=== PATIENT | male | born 1960 | race Caucasian/White ===

== ENCOUNTER 2018-06-26 16:03 | Emergency (ER) | payer BC ==
[2018-06-26 16:52] LABS: BASO % 0.4 % (0-6); EOS % 8.2 % (0-6); GRAN % 33.4 % (47-80); HEMATOCRIT 39.1 % (42.0-52.0); HEMOGLOBIN 12.6 gm/dl (14.0-18.0); LYMPH % 45.4 % (16-45); MEAN CELL VOLUME 83.2 fl (81-97); MEAN CORPUSCULAR HEMOGLOBIN 26.8 pg (27-33); MEAN CORPUSCULAR HGB CONC 32.2 g/dl (32-36); MEAN PLATELET VOLUME 9.8 fl (7.4-10.4); MONO % 12.6 % (0-9); PLATELET COUNT 218 K/uL (130-400); RED CELL DISTRIBUTION WIDTH 14.8 % (11.5-14.5); WHITE BLOOD COUNT W/O DIFF 6.8 K/uL (4.2-12.2)
[2018-06-26 17:01] LABS: BLOOD UREA NITROGEN 21 mg/dL (6-20); CREATININE 1.3 mg/dL (0.7-1.2); EST GLOMERULAR FILTRATION RATE > 60 mL/min
[2018-06-26 17:02] LABS: TOTAL PROTEIN 6.7 g/dL (6.6-8.7)
[2018-06-26 17:04] LABS: GLUCOSE,RANDOM 88 mg/dL (74-109)
[2018-06-26 17:06] LABS: ALB/GLOB RATIO 1.4 (1.1-1.8); ALBUMIN 3.9 g/dL (4.0-5.0); ALT/SGPT 43 U/L (<41); AST/SGOT 41 U/L (10.0-50.0)
[2018-06-26 17:07] LABS: ALKALINE PHOSPHATASE 107 U/L (40-129)
--- NOTE | 2018-06-26 17:07 | Emergency Department Record ---
History of Present Illness - General Chief Complaint: Seizures Stated Complaint: SEZURE Time Seen by Provider: 06/26/18 16:10 Source: Patient, Police, EMS Mode of Arrival: EMS - History of Present Illness Initial Comments: pt brought in after a witnessed seizure when he hit his head. pt was postictal.. pt denies hx of seizures and denies he had a seizure. pt has been hiv pos for 33 years MD Complaint: Seizure Onset/Timin -: Hour(s) Description of Episode: Post-event confusion, Tonic-clonic movement Witnessed: Yes - by bystander Trauma: (bump on head and ankle) Place: Street/outdoors Associated Symptoms: Other (neck and back pain, chronic) Treatments Prior to Arrival: None - Related Data Home Medications Medication Instructions Recorded Confirmed Last Taken Alprazolam [Xanax] 0.25 mg PO QHS PRN 06/26/18 06/26/18 Unknown Bupropion HCl [Wellbutrin Xl] 450 mg PO DAILY 06/26/18 06/26/18 06/26/18 Cyclobenzaprine HCl [Flexeril] 10 mg PO DAILY PRN 06/26/18 06/26/18 Unknown Diphenoxylate HCl/Atropine 1 each PO DAILY 06/26/18 06/26/18 06/26/18 [Diphenoxylate-Atrop 2.5-0.025] Dolutegravir Sodium [Tivicay] 50 mg PO BID 06/26/18 06/26/18 06/26/18 Duloxetine HCl [Cymbalta] 60 mg PO BID 06/26/18 06/26/18 06/26/18 Emtricitabine/Tenofov Alafenam 1 each PO DAILY 06/26/18 06/26/18 06/26/18 [Descovy 200-25 mg Tablet] Enfuvirtide [Fuzeon] 90 mg SQ BID 06/26/18 06/26/18 06/26/18 Ergocalciferol (Vitamin D2) 50,000 unit PO WEEKLY 06/26/18 06/26/18 06/26/18 [Vitamin D2] Ferrous Sulfate 325 mg PO DAILY 06/26/18 06/26/18 06/26/18 Gabapentin [Neurontin] 300 mg PO TID 06/26/18 06/26/18 06/26/18 Meloxicam 15 mg PO DAILY 06/26/18 06/26/18 06/26/18 Mirtazapine 15 mg PO QHS 06/26/18 06/26/18 Unknown Pravastatin Sodium [Pravachol] 20 mg PO DAILY 06/26/18 06/26/18 06/26/18 Ritonavir [Norvir] 100 mg PO BID 06/26/18 06/26/18 06/26/18 Ropinirole HCl [Requip] 0.25 mg PO QHS 06/26/18 06/26/18 Unknown Saquinavir Mesylate [Invirase] 500 mg PO BID 06/26/18 06/26/18 06/26/18 Valacyclovir HCl [Valtrex] 1,000 mg PO DAILY 06/26/18 06/26/18 06/26/18 Allergies Allergy/AdvReac Type Severity Reaction Status Date / Time sulfamethoxazole Allergy ANAPHYLAXIS Verified 06/26/18 16:19 [From Bactrim] trimethoprim [From Bactrim] Allergy ANAPHYLAXIS Verified 06/26/18 16:19 Travel Screening - Travel/Exposure Within Last 30 Days Have you traveled within the last 30 days?: Yes Location Detail:: [place] - Travel/Exposure Within Last Year Have you traveled outside the [place] in the last year?: No - Additonal Travel Details Have you been exposed to anyone with a communicable illness?: No - Travel Symptoms Symptom Screening: None Review of Systems Reviewed: No additional complaints except as noted below Constitutional: Reports: As per HPI. Denies: Chills, Fever, Malaise, Night sweats, Weakness, Weight change Eyes: Reports: As per HPI. Denies: Eye discharge, Eye pain, Photophobia, Vision change ENT: Reports: As per HPI. Denies: Congestion, Dental pain, Ear pain, Epistaxis , Hearing loss, Throat pain Respiratory: Reports: As per HPI. Denies: Cough, Dyspnea, Hemoptysis, Stridor, Wheezes Cardiovascular: Reports: As per HPI. Denies: Arrhythmia, Chest pain, Dyspnea on exertion, Edema, Murmurs, Orthopnea, Palpitations, Paroxysmal nocturnal dyspnea, Rheumatic Fever, Syncope Endocrine: Reports: As per HPI. Denies: Fatigue, Heat or cold intolerance, Polydipsia, Polyuria Gastrointestinal: Reports: As per HPI. Denies: Abdominal pain, Constipation, Diarrhea, Hematemesis, Hematochezia, Melena, Nausea, Vomiting Genitourinary: Reports: As per HPI. Denies: Dysuria, Frequency, Hematuria, Incontinence, Retention, Testicular pain, Testicular mass, Urgency Musculoskeletal: Reports: As per HPI. Denies: Arthralgia, Back pain, Gout, Joint swelling, Myalgia, Neck pain Skin: Reports: As per HPI. Denies: Bruising, Change in color, Change in hair/ nails, Lesions, Pruritus, Rash Neurological: Reports: As per HPI, Seizure. Denies: Abnormal gait, Confusion, Headache, Numbness, Paresthesias, Tingling, Tremors, Vertigo, Weakness Psychiatric: Reports: As per HPI. Denies: Anxiety, Auditory hallucinations, Depression, Homicidal thoughts, Suicidal thoughts, Visual hallucinations Hematological/Lymphatic: Reports: As per HPI. Denies: Anemia, Blood Clots, Easy bleeding, Easy bruising, Swollen glands Past Medical History - SOCIAL HISTORY Smoking Status: Never smoker Alcohol Use: None Drug Use: Rare Drug Use Detail:: Marijuana - RESPIRATORY Hx Respiratory Disorders: Yes Hx Pneumonia: Yes - CARDIOVASCULAR Hx Cardio Disorders: No - NEURO Hx Neuro Disorders: No - GI Hx GI Disorders: Yes Hx Hepatitis/Jaundice: Yes (Hep A, B and C.) Hx of Polyps: Yes - Hx Genitourinary Disorders: No - ENDOCRINE Hx Endocrine Disorders: No - MUSCULOSKELETAL Hx Musculoskeletal Disorders: Yes Comment:: neck problems - PSYCH Hx Psych Problems: Yes Hx Depression: Yes Comment:: major depressive disorder, PTSD - HEMATOLOGY/ONCOLOGY Hx Hematology/Oncology Disorders: Yes Hx Blood Transfusions: Yes Hx Blood Transfusion Reaction: No Family Medical History Any Significant Family History?: No Physical Exam - General General Appearance: Alert, Oriented x3, Cooperative, Mild distress - Head Head exam: Normal inspection Head exam detail: Abrasion, Contusion, Hematoma - Eye Eye exam: Normal appearance, PERRL, EOMI Pupils: Normal accommodation - ENT ENT exam: Normal exam, Mucous membranes moist, Normal external ear exam, Normal orophraynx Ear exam: Normal external inspection. negative: External canal tenderness Nasal Exam: Normal inspection. negative: Discharge, Sinus tenderness Mouth exam: Normal external inspection, Tongue normal Teeth exam: Normal inspection. negative: Dental caries Throat exam: Normal inspection. negative: Tonsillar erythema, Tonsillar exudate - Neck Neck exam: Tenderness, Other (in collar) - Respiratory Respiratory exam: Normal lung sounds bilaterally. negative: Respiratory distress - Cardiovascular Cardiovascular Exam: Regular rate, Normal rhythm, Normal heart sounds - GI/Abdominal GI/Abdominal exam: Soft, Normal bowel sounds. negative: Tenderness - Rectal Rectal exam: Deferred - exam: Deferred - Extremities Extremities exam: Normal inspection, Full ROM, Normal capillary refill. negative: Tenderness - Back Back exam: Reports: Normal inspection, Full ROM. Denies: Muscle spasm, Rash noted, Tenderness - Neurological Neurological exam: Alert, CN II-XII intact, Normal gait, Oriented X3 - Psychiatric Psychiatric exam: Normal affect, Normal mood - Skin Skin exam: Dry, Intact, Normal color, Warm Course Vital Signs 06/26/18 16:06 Temperature 98.2 F Pulse Rate 88 Respiratory 18 Rate Blood Pressure 152/105 Pulse Ox 97 Medical Decision Making - Lab Data Result diagrams: 06/26/18 16:30 06/26/18 16:30 Disposition Disposition: Discharge Clinical Impression: Seizure Head injury Qualifiers: Encounter type: initial encounter Qualified Code(s): S09.90XA - Unspecified injury of head, initial encounter Disposition: Home, Self-Care Condition: (1) Good Instructions: New-Onset Seizure in Adults (ED) Additional Instructions: follow up with neurologist alyce. no driving until cleared by neurologist. avoid climbing. follow up with family doctor. Forms: Patient Portal Access Quality - Quality Measures Quality Measures: N/A - Blood Pressure Screening Does Patient Have Any of the Following: No Blood Pressure Classification: Hypertensive Reading Systolic Measurement: 152 Diastolic Measurement: 105 Screening for High Blood Pressure: < First Hypertensive BP, F/U Documented > [ [id number]] First Hypertensive Follow-up Interventions: Follow-up with rescreen GT 1 day and LT 4 weeks.
--- NOTE | 2018-06-29 12:39 | CT SCAN REPORT ---
EXAM: CT OF THE CERVICAL SPINE WITHOUT IV CONTRAST HISTORY: FALL. TECHNIQUE: Helical CT scan of the cervical spine was obtained without intravenous contrast. Sagittal and coronal reformations were obtained. Comparison: None. Encounter: Initial. FINDINGS: Sagittal images show minimal retrolisthesis of C3 on C4, C5 on C6, and C6 on C7, on the basis of degenerative disease. Severe disk space narrowing is present with irregularity of the end plates at C3-C4, C4-C5, and C5 -C6 and to a lesser extent C6-C7. Anterior and posterior osteophytes are present. There is moderate narrowing of the neural foramina at these levels. The facet joints are aligned normally. The C1-C2 relationship is normal on the coronal images. The craniocervical junction is normal. No prevertebral soft tissue swelling. Axial images show no fractures. The lung apices are normal. IMPRESSION: 1. NO EVIDENCE OF FRACTURE OF THE CERVICAL SPINE. 2. SEVERE DEGENERATIVE CHANGES FROM C3 TO C7. QUESTION WHETHER THE PATIENT HAS HISTORY OF DISCITIS OR HISTORY OF INFLAMMATORY ARTHRITIS GIVEN THE SEVERITY AND THE AGE OF THE PATIENT. JOB NUMBER: [id number] [facility]
--- NOTE | 2018-06-29 12:42 | CT SCAN REPORT ---
EXAM: CT OF THE HEAD WITHOUT IV CONTRAST HISTORY: SEIZURE TODAY. TECHNIQUE: Helical CT scan of the head was obtained without intravenous contrast. Comparison: None. Hand dominance: Right. FINDINGS: No evidence of hemorrhage, extraaxial fluid collection, or major vessel infarction. The bauman white matter differentiation is maintained. The ventricles are normal. The basal cisterns are patent. No mass effect or midline shift. The calvarium is intact. The paranasal sinuses and middle ear cavities are well aerated. IMPRESSION: NO ACUTE INTRACRANIAL ABNORMALITIES. JOB NUMBER: [id number] [facility]
== END 2018-06-26 18:48 | disposition home or self-care (01) ==
LOC: ER 16:03
DX: S09.90XA Unspecified injury of head, initial encounter (principal); S90.511A Abrasion, right ankle, initial encounter; R56.9 Unspecified convulsions; M54.2 Cervicalgia; B20 Human immunodeficiency virus [HIV] disease; W18.00XA Striking against unspecified object with subsequent fall, initial encounter; Y92.410 Unspecified street and highway as the place of occurrence of the external cause
CPT/HCPCS: 70450; 72125; 80053; 84484; 85025; 93005; 93010; 99283; 99284